=== PATIENT | female | born 1990 | race Caucasian/White ===

== ENCOUNTER 2019-03-19 20:15 | Emergency (ER) | payer BC, MEDICAID ==
[2019-03-19] MEDS ORDERED: MORPHINE SULFATE 2 MG/ML SYRINGE IVP STA (20:42)
[2019-03-19] MEDS ORDERED: ONDANSETRON 4 MG/2 ML VIAL IVP STA (20:42)
--- NOTE | 2019-03-19 20:46 | ED ---
General Adult HPI - General Chief complaint: Chest Pain Stated complaint: Chest pain Time Seen by Provider: 03/19/19 20:25 Source: patient Mode of arrival: wheelchair Limitations: no limitations - History of Present Illness Initial comments: 28-year-old female patient with past medical history significant for anxiety presents to the emergency department today for evaluation of chest pain. Patient states she has been having chest pain on and off all day. Patient states the pain is now constant and radiating down the left arm. Patient states the pain is sharp in nature and worsens with deep breathing. Patient states she feels a squeezing around her chest like is difficult to take a breath. States she did have some sweats earlier today. Denies any nausea or vomiting. Denies history of similar symptoms. Denies any recent increase in physical activity or injuries. Denies any recent cough or congestion. States she does take oral contraceptive for the last couple of years. She denies any leg pain or swelling. Denies any recent travel. She does have a family history of coronary artery disease in her father and grandparents. No history of cardiac events at young ages. Patient denies any recent rash, fever, chills, abdominal pain, d iarrhea, constipation, back pain, numbness, tingling, dizziness, weakness, hematuria, dysuria, urinary urgency, urinary frequency, headache, visual changes, or any other complaints. - Related Data Home Medications Medication Instructions Recorded Confirmed ALPRAZolam [Xanax] 0.25 mg PO Q8H PRN 03/19/19 03/19/19 Aspirin 81 mg PO ONCE PRN 03/19/19 03/19/19 Fluticasone Nasal [place] [Flonase 2 spray EA NOSTRIL HS 03/19/19 03/19/19 Nasal [place]] Gabapentin [Neurontin] 300 mg PO BID 03/19/19 03/19/19 Galcanezumab-Gnlm [Emgality] 120 mg SQ Q30D 03/19/19 03/19/19 Nortriptyline [Pamelor] 25 mg PO HS 03/19/19 03/19/19 Ondansetron HCl [Zofran] 4 mg PO Q8H PRN 03/19/19 03/19/19 Rivelsa 1 tab PO HS 03/19/19 03/19/19 Rizatriptan Odt [Maxalt Automation Engineering Manager] 10 mg PO BID PRN 03/19/19 03/19/19 busPIRone HCL 10 mg PO BID 03/19/19 03/19/19 Previous Rx's Medication Instructions Recorded Cephalexin [Keflex] 500 mg PO BID #14 cap 03/19/19 Cephalexin [Keflex] 500 mg PO BID #14 cap 03/19/19 Allergies Allergy/AdvReac Type Severity Reaction Status Date / Time metformin Allergy Dyspnea Verified 03/19/19 21:18 Review of Systems ROS Statement: Those systems with pertinent positive or pertinent negative responses have been documented in the HPI. ROS Other: All systems not noted in ROS Statement are negative. Past Medical History Additional Past Medical History / Comment(s): migraines, History of Any Multi-Drug Resistant Organisms: None Reported Past Surgical History: Cholecystectomy Past Psychological History: No Psychological Hx Reported Smoking Status: Former smoker Past Alcohol Use History: Occasional Past Drug Use History: None Reported General Exam Limitations: no limitations General appearance: alert, in no apparent distress, other (Physical well-dev eloped, well-nourished adult female patient in no acute distress. Vital signs upon presentation are temperature 98.1F, pulse 83, respirations 18, blood pressure 124/78, pulse ox 100% on room air.) Eye exam: Present: normal appearance, PERRL, EOMI. Absent: scleral icterus, conjunctival injection, periorbital swelling ENT exam: Present: normal exam, normal oropharynx, mucous membranes moist Respiratory exam: Present: normal lung sounds bilaterally. Absent: respiratory distress, wheezes, rales, rhonchi, stridor Cardiovascular Exam: Present: regular rate, normal rhythm, normal heart sounds. Absent: systolic murmur, diastolic murmur, rubs, gallop, clicks GI/Abdominal exam: Present: soft, normal bowel sounds. Absent: distended, tenderness, guarding, rebound, rigid Neurological exam: Present: alert, oriented X3, CN II-XII intact Psychiatric exam: Present: normal affect, normal mood Skin exam: Present: warm, dry, intact, normal color. Absent: rash Course Vital Signs 03/19/19 03/19/19 03/19/19 20:19 21:20 21:30 Temperature 98.1 F Pulse Rate 83 92 75 Respiratory 18 18 19 Rate Blood Pressure 124/78 123/63 123/63 O2 Sat by Pulse 100 100 100 Oximetry 03/19/19 03/19/19 03/19/19 21:40 21:50 22:00 Temperature Pulse Rate 72 96 Respiratory 7 L 9 L Rate Blood Pressure 124/65 124/65 124/65 O2 Sat by Pulse 99 100 Oximetry EKG Findings - EKG Comments: EKG Findings:: EKG obtained at 2030 shows normal sinus rhythm with a sinus arrhythmia. Ventricular rate is 82, MI interval 134, QRS duration 92, QT 364, QTC 425. No evidence of ST elevation or depression. Medical Decision Making - Medical Decision Making 28-year-old female patient presents to the emergency department today for evaluation of chest pain and tightness. Physical examination reveals clear equal lung sounds. Pain is nonreproducible palpation. EKG showed normal sinus rhythm with a sinus arrhythmia, no ST changes. Chest x-ray showed no acute cardiopulmonary process. Labs were reviewed and are mostly unremarkable. D- dimer was 0.50 which was borderline for this patient. Did perform CT angiogr aphy of the chest which was negative for any evidence for pulmonary embolism or other acute processes. I did discuss findings and results with the patient. We did discuss anxiety as a possible cause for her symptoms however she is instructed to follow-up with her primary care physician for further evaluation, discussion of referral to cardiology and possible echocardiogram. Return parameters were discussed in detail. She verbalizes understanding and agrees with this plan. - Lab Data Result diagrams: 03/19/19 20:38 03/19/19 20:38 Lab Results 03/19/19 03/19/19 03/19/19 Range/Units 20:38 20:38 20:38 WBC 5.2 (3.8-10.6) k/uL RBC 4.07 (3.80-5.40) m/uL Hgb 13.5 (11.4-16.0) gm/dL Hct 39.0 (34.0-46.0) % MCV 96.0 (80.0-100.0) fL MCH 33.2 (25.0-35.0) pg MCHC 34.6 (31.0-37.0) g/dL RDW 12.0 (11.5-15.5) % Plt Count 212 (150-450) k/uL Neutrophils % 43 % Lymphocytes % 46 % Monocytes % 6 % Eosinophils % 1 % Basophils % 1 % Neutrophils # 2.3 (1.3-7.7) k/uL Lymphocytes # 2.4 (1.0-4.8) k/uL Monocytes # 0.3 (0-1.0) k/uL Eosinophils # 0.1 (0-0.7) k/uL Basophils # 0.0 (0-0.2) k/uL PT 10.2 (9.0-12.0) sec INR 0.9 (<1.2) APTT 25.1 (22.0-30.0) sec D-Dimer 0.55 (<0.60) mg/L FEU Sodium 140 (137-145) mmol/L Potassium 4.0 (3.5-5.1) mmol/L Chloride 104 (98-107) mmol/L Carbon Dioxide 26 (22-30) mmol/L Anion Gap 10 mmol/L BUN 17 (7-17) mg/dL Creatinine 0.80 (0.52-1.04) mg/dL Est GFR (CKD-EPI)AfAm >90 (>60 ml/min/1.73 sqM) Est GFR (CKD-EPI)NonAf >90 (>60 ml/min/1.73 sqM) Glucose 89 (74-99) mg/dL Calcium 9.5 (8.4-10.2) mg/dL Magnesium 2.0 (1.6-2.3) mg/dL Total Bilirubin 0.3 (0.2-1.3) mg/dL AST 29 (14-36) U/L ALT 41 (9-52) U/L Alkaline Phosphatase 55 (38-126) U/L Troponin I (0.000-0.034) ng/mL Total Protein 7.8 (6.3-8.2) g/dL Albumin 4.6 (3.5-5.0) g/dL Lipase 164 (23-300) U/L Urine Color Urine Appearance (Clear) Urine pH (5.0-8.0) Ur Specific [place] (1.001-1.035) Urine Protein (Negative) Urine Glucose (UA) (Negative) Urine Ketones (Negative) Urine Blood (Negative) Urine Nitrite (Negative) Urine Bilirubin (Negative) Urine Urobilinogen (<2.0) mg/dL Ur Leukocyte Esterase (Negative) Urine RBC (0-5) /hpf Urine WBC (0-5) /hpf Urine WBC Clumps (None) /hpf Ur Squamous Epith Cells (0-4) /hpf Urine Bacteria (None) /hpf Urine Mucus (None) /hpf Urine Yeast (Budding) (None) /hpf Urine HCG, Qual (Not Detectd) 03/19/19 03/19/19 03/19/19 Range/Units 20:38 21:00 21:00 WBC (3.8-10.6) k/uL RBC (3.80-5.40) m/uL Hgb (11.4-16.0) gm/dL Hct (34.0-46.0) % MCV (80.0-100.0) fL MCH (25.0-35.0) pg MCHC (31.0-37.0) g/dL RDW (11.5-15.5) % Plt Count (150-450) k/uL Neutrophils % % Lymphocytes % % Monocytes % % Eosinophils % % Basophils % % Neutrophils # (1.3-7.7) k/uL Lymphocytes # (1.0-4.8) k/uL Monocytes # (0-1.0) k/uL Eosinophils # (0-0.7) k/uL Basophils # (0-0.2) k/uL PT (9.0-12.0) sec INR (<1.2) APTT (22.0-30.0) sec D-Dimer (<0.60) mg/L FEU Sodium (137-145) mmol/L Potassium (3.5-5.1) mmol/L Chloride (98-107) mmol/L Carbon Dioxide (22-30) mmol/L Anion Gap mmol/L BUN (7-17) mg/dL Creatinine (0.52-1.04) mg/dL Est GFR (CKD-EPI)AfAm (>60 ml/min/1.73 sqM) Est GFR (CKD-EPI)NonAf (>60 ml/min/1.73 sqM) Glucose (74-99) mg/dL Calcium (8.4-10.2) mg/dL Magnesium (1.6-2.3) mg/dL Total Bilirubin (0.2-1.3) mg/dL AST (14-36) U/L ALT (9-52) U/L Alkaline Phosphatase (38-126) U/L Troponin I <0.012 (0.000-0.034) ng/mL Total Protein (6.3-8.2) g/dL Albumin (3.5-5.0) g/dL Lipase (23-300) U/L Urine Color Yellow Urine Appearance Cloudy H (Clear) Urine pH 6.0 (5.0-8.0) Ur Specific [place] 1.020 (1.001-1.035) Urine Protein Trace H (Negative) Urine Glucose (UA) Negative (Negative) Urine Ketones Negative (Negative) Urine Blood Trace H (Negative) Urine Nitrite Negative (Negative) Urine Bilirubin Negative (Negative) Urine Urobilinogen <2.0 (<2.0) mg/dL Ur Leukocyte Esterase Large H (Negative) Urine RBC 20 H (0-5) /hpf Urine WBC 49 H (0-5) /hpf Urine WBC Clumps Few H (None) /hpf Ur Squamous Epith Cells 4 (0-4) /hpf Urine Bacteria Many H (None) /hpf Urine Mucus Many H (None) /hpf Urine Yeast (Budding) Occasional H (None) /hpf Urine HCG, Qual Not Detected (Not Detectd) - Radiology Data Radiology results: report reviewed, image reviewed Two-view x-ray of the chest is obtained. Report was reviewed in its entirety. Impression by Dr. Parada shows normal chest. CT chest angiography for pulmonary embolus and was obtained. Report was reviewed in its entirety. Impression by Dr. Parada shows no evidence of pulmonary embolism. Normal exam. Disposition Clinical Impression: Chest pain, Urinary tract infection Disposition: HOME SELF-CARE Condition: Good Instructions (If sedation given, give patient instructions): Chest Pain (ED), Urinary Tract Infection in Women (ED) Additional Instructions: Increase fluids. Rest. Complete antibiotic prescription in full. Follow up with your primary care physician for recheck in 1-2 days. Return to the emergency department for evaluation for any new, worsening, or concerning symptoms. Prescriptions: Cephalexin [Keflex] 500 mg PO BID #14 cap Cephalexin [Keflex] 500 mg PO BID #14 cap Is patient prescribed a controlled substance at d/c from ED?: No Referrals: Toni Dixon DO [Primary Care Provider] - 1-2 days Time of Disposition: 23:31
[2019-03-19 21:02] LABS: ALT 41 U/L (9-52); AST 29 U/L (14-36); African American GFR (CKD) >90 (>60 ml/min/1.73 sqM); Albumin 4.6 g/dL (3.5-5.0); Alkaline Phosphatase 55 U/L (38-126); Anion Gap 10 mmol/L; Blood Urea Nitrogen 17 mg/dL (7-17); Calcium 9.5 mg/dL (8.4-10.2); Carbon Dioxide 26 mmol/L (22-30); Chloride 104 mmol/L (98-107); Glucose 89 mg/dL (74-99); Sodium 140 mmol/L (137-145); Total Bilirubin 0.3 mg/dL (0.2-1.3); Total Protein 7.8 g/dL (6.3-8.2)
[2019-03-19 21:07] LABS: D-Dimer 0.55 mg/L FEU (<0.60); INR 0.9 (<1.2); Partial Thromboplastin Time 25.1 sec (22.0-30.0); Prothrombin Time 10.2 sec (9.0-12.0)
[2019-03-19 21:26] LABS: Basophils % (A) 1 %; Eosinophils # (A) 0.1 k/uL (0-0.7); Eosinophils % (A) 1 %; HGB 13.5 gm/dL (11.4-16.0); Lymphocytes # (A) 2.4 k/uL (1.0-4.8); Lymphocytes % (A) 46 %; MCH 33.2 pg (25.0-35.0); MCHC 34.6 g/dL (31.0-37.0); Monocytes # (A) 0.3 k/uL (0-1.0); Monocytes % (A) 6 %; Neutrophils # (A) 2.3 k/uL (1.3-7.7); Neutrophils % (A) 43 %; Platelet Count 212 k/uL (150-450); RBC 4.07 m/uL (3.80-5.40); WBC 5.2 k/uL (3.8-10.6)
[2019-03-19 21:30] LABS: Appearance,Urine Cloudy (Clear); Bacteria,Urine Many /hpf; Bilirubin,Urine Negative (Negative); Blood,Urine Trace (Negative); Budding Yeast,Urine Occasional /hpf; Color,Urine Yellow; Glucose,Urine (UA) Negative (Negative); Ketones,Urine Negative (Negative); Leukocyte Esterase,Urine Large (Negative); Mucus,Urine Many /hpf; Nitrite,Urine Negative (Negative); Protein,Urine Trace (Negative); RBC,Urine 20 /hpf (0-5); Squamous Epithelial Cell,Urine 4 /hpf (0-4); Urobilinogen,Urine <2.0 mg/dL (<2.0); WBC,Urine 49 /hpf (0-5)
--- NOTE | 2019-03-19 21:47 | XR ---
EXAMINATION TYPE: XR chest 2V DATE OF EXAM: 03/19/2019 COMPARISON: NONE HISTORY: Chest TECHNIQUE: Frontal and lateral views of the chest are obtained. FINDINGS: Heart and mediastinum are normal. Lungs are clear. Diaphragm is normal. Bony thorax appear s normal. IMPRESSION: Normal chest.
[2019-03-19] MEDS ORDERED: CEPHALEXIN 500MG STARTER PACK 4 CAP BTL PO STA (21:50)
--- NOTE | 2019-03-19 23:12 | CT ---
EXAMINATION TYPE: CT chest angio for PE DATE OF EXAM: 03/19/2019 COMPARISON: None HISTORY: chest pain CT DLP: 309.9 mGycm Automated exposure control for dose reduction was used. CONTRAST: CT Chest for pulmonary embolism performed with with IV Contrast, patient injected with 60 mL of Isovu e 370. There are 3-D post processed images. FINDINGS: The lungs are clear of infiltrate. There is no pleural effusion. Heart size is normal. There is no me diastinal adenopathy. Thoracic aorta is intact. There are are no hilar masses. There is normal contrast opacification of the pulmonary arteries. There are no filling defects. Thora cic spine is intact. Bony thorax appears intact. There is no pericardial effusion. Upper abdominal so ft tissues are intact. IMPRESSION: No evidence of pulmonary embolism. Normal exam.
[2019-03-19] MEDS ORDERED: LORazepam 2 MG/ML INJ IV STA (23:29)
[2019-03-19] MEDS ORDERED: KETOROLAC 30 MG/ML 1 ML VIAL IVP STA (23:29)
[2019-03-20 00:31] VITALS: BP 128/70; PULSE 98; RESP 18; TEMP 98.6
== END 2019-03-20 00:20 | disposition home or self-care (01) ==
LOC: EC 20:15
DX: N39.0 Urinary tract infection, site not specified (principal); R07.9 Chest pain, unspecified; I49.8 Other specified cardiac arrhythmias; F41.9 Anxiety disorder, unspecified; G43.909 Migraine, unspecified, not intractable, without status migrainosus; Z79.899 Other long term (current) drug therapy; Z88.8 Allergy status to other drugs, medicaments and biological substances; Z87.891 Personal history of nicotine dependence
CPT/HCPCS: 36415; 93005; 85379; 80053; 83690; 83735; 84484; 85025; 85610; 85730; 81001; 81025; 71046; 71275; 99285; 96374; 96375 ×3; J2060; J2405; J1885; J2270; Q9967

== ENCOUNTER 2020-04-13 11:02 | Emergency (ER) | payer MEDICAID ==
[2020-04-13 11:34] VITALS: RESP 18
[2020-04-13] MEDS ORDERED: ONDANSETRON 4 MG/2 ML VIAL IVP STA (11:58)
[2020-04-13] MEDS ORDERED: HYDROmorphone 0.5 MG/0.5 ML SYRINGE IVP STA ×2 (11:58→13:33)
--- NOTE | 2020-04-13 12:28 | ED ---
ENT HPI - General Chief complaint: Dental/Oral Stated complaint: mouth swelling/pain Time Seen by Provider: 04/13/20 11:37 Source: patient, RN notes reviewed Mode of arrival: ambulatory Limitations: no limitations - History of Present Illness Initial comments: 29-year-old female presents emergency Department chief complaint of right-sided facial swelling. Patient states that she started having some discomfort in last day or so with her TMJ. Patient states she did receive a shot of steroids. Patient states that she went to urgent care today and was referred emergency department. She has no dentition and has bothering her. She states she did use some benzocaine on the right side of her face which she has used in the past but never had this reaction. No difficulty swallowing or difficult breathing. She states the pain is excruciating at this point. - Related Data Home Medications Medication Instructions Recorded Confirmed ALPRAZolam [Xanax] 0.25 mg PO Q8H PRN 03/19/19 03/19/19 Aspirin 81 mg PO ONCE PRN 03/19/19 03/19/19 Fluticasone Nasal [place] [Flonase 2 spray EA NOSTRIL HS 03/19/19 03/19/19 Nasal [place]] Gabapentin [Neurontin] 300 mg PO BID 03/19/19 03/19/19 Galcanezumab-Gnlm [Emgality] 120 mg SQ Q30D 03/19/19 03/19/19 Nortriptyline [Pamelor] 25 mg PO HS 03/19/19 03/19/19 Ondansetron HCl [Zofran] 4 mg PO Q8H PRN 03/19/19 03/19/19 Rivelsa 1 tab PO HS 03/19/19 03/19/19 Rizatriptan Odt [Maxalt Base Engineer] 10 mg PO BID PRN 03/19/19 03/19/19 busPIRone HCL 10 mg PO BID 03/19/19 03/19/19 Previous Rx's Medication Instructions Recorded Cephalexin [Keflex] 500 mg PO BID #14 cap 03/19/19 Cephalexin [Keflex] 500 mg PO BID #14 cap 03/19/19 Amoxicillin/Potassium Clav 1 tab PO Q12HR #20 tab 04/13/20 [Augmentin 875-125 Tablet] Allergies Allergy/AdvReac Type Severity Reaction Status Date / Time metformin Allergy Dyspnea Verified 04/13/20 11:34 Review of Systems ROS Statement: Those systems with pertinent positive or pertinent negative responses have been documented in the HPI. ROS Other: All systems not noted in ROS Statement are negative. Past Medical History Additional Past Medical History / Comment(s): migraines, History of Any Multi-Drug Resistant Organisms: None Reported Past Surgical History: Cholecystectomy Past Psychological History: No Psychological Hx Reported Smoking Status: Never smoker Past Alcohol Use History: Occasional Past Drug Use History: None Reported General Exam Limitations: no limitations General appearance: alert, in no apparent distress Head exam: Present: atraumatic, normocephalic, normal inspection Eye exam: Present: normal appearance, PERRL, EOMI. Absent: scleral icterus, conjunctival injection, periorbital swelling ENT exam: Present: mucous membranes moist, TM's normal bilaterally. Absent: normal exam, normal oropharynx (Significant swollen right lower, tenderness increased warmth and erythema) Neck exam: Present: normal inspection, full ROM. Absent: tenderness, meningismus, lymphadenopathy Respiratory exam: Present: normal lung sounds bilaterally. Absent: respiratory distress, wheezes, rales, rhonchi, stridor Cardiovascular Exam: Present: regular rate, normal rhythm, normal heart sounds. Absent: systolic murmur, diastolic murmur, rubs, gallop, clicks Course Vital Signs 04/13/20 04/13/20 11:32 13:41 Temperature 98.4 F Pulse Rate 103 H 80 Respiratory 18 18 Rate Blood Pressure 116/67 127/69 O2 Sat by Pulse 98 98 Oximetry Medical Decision Making - Medical Decision Making 29-year-old female presented for right-sided facial swelling CT shows evidence of early phlegmon. Patient has no other significant leukocytosis which she had significant increase in his abdomen last [address] Lloyd discuss case with Dr. Barger recommends patient's take her him is a minor amount, placed on Augmentin, follow-up in office with ENT and dentist - Lab Data Result diagrams: 04/13/20 12:17 04/13/20 12:17 Lab Results 04/13/20 04/13/20 04/13/20 Range/Units 12:17 12:17 12:17 WBC 8.4 (3.8-10.6) k/uL RBC 4.32 (3.80-5.40) m/uL Hgb 13.9 (11.4-16.0) gm/dL Hct 41.9 (34.0-46.0) % MCV 97.1 (80.0-100.0) fL MCH 32.2 (25.0-35.0) pg MCHC 33.2 (31.0-37.0) g/dL RDW 12.7 (11.5-15.5) % Plt Count 198 (150-450) k/uL MPV 6.6 Neutrophils % 82 % Lymphocytes % 12 % Monocytes % 5 % Eosinophils % 1 % Basophils % 0 % Neutrophils # 6.9 (1.3-7.7) k/uL Lymphocytes # 1.0 (1.0-4.8) k/uL Monocytes # 0.4 (0-1.0) k/uL Eosinophils # 0.0 (0-0.7) k/uL Basophils # 0.0 (0-0.2) k/uL Sodium 140 (137-145) mmol/L Potassium 4.2 (3.5-5.1) mmol/L Chloride 107 (98-107) mmol/L Carbon Dioxide 25 (22-30) mmol/L Anion Gap 8 mmol/L BUN 13 (7-17) mg/dL Creatinine 0.73 (0.52-1.04) mg/dL Est GFR (CKD-EPI)AfAm >90 (>60 ml/min/1.73 sqM) Est GFR (CKD-EPI)NonAf >90 (>60 ml/min/1.73 sqM) Glucose 91 (74-99) mg/dL Plasma Lactic Acid Freddie 0.8 (0.7-2.0) mmol/L Calcium 9.4 (8.4-10.2) mg/dL Total Bilirubin 1.3 (0.2-1.3) mg/dL AST 24 (14-36) U/L ALT 25 (4-34) U/L Alkaline Phosphatase 64 (38-126) U/L Total Protein 7.6 (6.3-8.2) g/dL Albumin 4.4 (3.5-5.0) g/dL Amylase 42 (30-110) U/L Disposition Clinical Impression: Facial cellulitis, Dental infection Disposition: HOME SELF-CARE Condition: Stable Instructions (If sedation given, give patient instructions): Cellulitis (ED) Additional Instructions: Please return to the Emergency Department if symptoms worsen or any other concerns. Prescriptions: Amoxicillin/Potassium Clav [Augmentin 875-125 Tablet] 1 tab PO Q12HR #20 tab Is patient prescribed a controlled substance at d/c from ED?: No Referrals: Toni Dixon DO [Primary Care Provider] - 1-2 days Reji Barger DO [Doctor of Osteopathic Medicine] - 1-2 days Time of Disposition: 14:24
[2020-04-13 12:49] LABS: Basophils % (A) 0 %; Eosinophils % (A) 1 %; HCT 41.9 % (34.0-46.0); HGB 13.9 gm/dL (11.4-16.0); Lymphocytes % (A) 12 %; MCH 32.2 pg (25.0-35.0); MCHC 33.2 g/dL (31.0-37.0); MCV 97.1 fL (80.0-100.0); Mean Platelet Volume 6.6; Monocytes # (A) 0.4 k/uL (0-1.0); Monocytes % (A) 5 %; Neutrophils # (A) 6.9 k/uL (1.3-7.7); Neutrophils % (A) 82 %; Platelet Count 198 k/uL (150-450); RBC 4.32 m/uL (3.80-5.40); RDW 12.7 % (11.5-15.5); WBC 8.4 k/uL (3.8-10.6)
[2020-04-13 12:58] LABS: ALT 25 U/L (4-34); AST 24 U/L (14-36); African American GFR (CKD) >90 (>60 ml/min/1.73 sqM); Albumin 4.4 g/dL (3.5-5.0); Alkaline Phosphatase 64 U/L (38-126); Amylase 42 U/L (30-110); Anion Gap 8 mmol/L; Blood Urea Nitrogen 13 mg/dL (7-17); Calcium 9.4 mg/dL (8.4-10.2); Carbon Dioxide 25 mmol/L (22-30); Chloride 107 mmol/L (98-107); Glucose 91 mg/dL (74-99); Non-African American GFR(CKD) >90 (>60 ml/min/1.73 sqM); Potassium 4.2 mmol/L (3.5-5.1); Sodium 140 mmol/L (137-145); Total Bilirubin 1.3 mg/dL (0.2-1.3); Total Protein 7.6 g/dL (6.3-8.2)
--- NOTE | 2020-04-13 13:15 | CT ---
EXAMINATION TYPE: CT soft tissue neck w con DATE OF EXAM: 04/13/2020 COMPARISON: None HISTORY: Mouth swelling, pain CT DLP: 168.8 mGycm CONTRAST: Patient injected with 100 ml mL of Isovue 300. TECHNIQUE: Axial images at 3 mm thick sections. Reconstructed images in the coronal plane and sagitt al plane are reviewed. FINDINGS: Limited CT sections are obtained the lung apices. The lung apices appear clear. CT neck: The torus tubarius and fossa of [place]muller are normal. Manufacturing Mechanic spaces are normal. Para nasal sinuses and mastoid air cells are clear. Parotid glands appear normal and symmetrical. Submandibular glands, are normal. Parapharyngeal spac es are normal. No suspicious adenopathy is evident. Subcutaneous inflammatory changes or from the submental space on the right through the right mandibul ar level towards the cheek. This corresponds to the area marked by the BBs. The platysmas muscle may be slightly thickened and there is a small amount of fluid adjacent to the parotid gland and right tubbs bmandibular gland. No discrete abscess formation is evident. There are a couple of hyperdense lymph n odes in this region measuring 0.7 cm in transverse dimension. The hypopharynx appears within normal limits. Vocal cord level appear symmetrical. Thyroid as visualized is normal. Osseous structures are normal. Upper lung hunter are clear. There is a three-vessel arch. Subglottic airway is normal. IMPRESSIONS: 1. Soft tissue inflammatory changes with some deeper inflammatory changes and small amount of fluid n ear the angle of the jaw. Infection and phlegmon should be considered. No discrete abscess formation is evident at this time.
[2020-04-13] MEDS ORDERED: CLINDAMYCIN 600 MG in DEXTROSE 5% IN WATER 50 ML IVPB STA ×2 (13:32)
[2020-04-13] MEDS ORDERED: KETOROLAC 15 MG/ML 1 ML VIAL IVP STA (13:33)
[2020-04-13] MEDS ORDERED: ACET/COD 300 MG/30 MG STARTER PACK 6 TAB BTL PO STA (14:25)
[2020-04-13 15:05] VITALS: BP 111/61; PULSE 93; TEMP 98
== END 2020-04-13 15:02 | disposition home or self-care (01) ==
LOC: EC 11:02
DX: L03.211 Cellulitis of face (principal); K04.7 Periapical abscess without sinus; G43.909 Migraine, unspecified, not intractable, without status migrainosus; Z79.51 Long term (current) use of inhaled steroids; Z79.3 Long term (current) use of hormonal contraceptives; Z88.8 Allergy status to other drugs, medicaments and biological substances
CPT/HCPCS: 36415; 80053; 82150; 83605; 85025; 70491; 99284; 96365; 96375 ×3; 96376; J2405; J1885; J1170; Q9967

== ENCOUNTER → 2020-12-10 | Outpatient (CLI) | payer MEDICAID | LOC: EC 22:39 | PROVIDERS: ATTEND Internal Medicine Rheumatology | DX: Z53.9 Procedure and treatment not carried out, unspecified reason (principal) ==

== ENCOUNTER → 2021-01-12 | Outpatient (CLI) | payer MEDICAID ==
--- NOTE | 2021-01-12 14:22 | XR ---
EXAM TYPE: LUMBAR SPINE X RAY SERIES COMPARISON: NONE HISTORY: Pain TECHNIQUE: 4 views are submitted. FINDINGS: Alignment is anatomic. The pedicles are intact. The transverse processes are intact. There is no s pondylolysis or spondylolisthesis. Surgical clips in the gallbladder fossa. No sizable syndesmophyte s or osteophytes noted. Mild hypertrophic change of the facet L5-S1. IMPRESSION: 1. Mild facet arthropathy L5-S1..
--- NOTE | 2021-01-12 14:22 | XR ---
EXAMINATION TYPE: XR pelvis AP view DATE OF EXAM: 01/12/2021 COMPARISON: NONE HISTORY: Pain The osseous structures are intact and the joint spaces are preserved. No acute fracture is seen. Vi sualized bowel gas pattern is nonspecific. Sacroiliac joints normal. IMPRESSION: 1. No acute fracture.
--- NOTE | 2021-01-12 14:23 | XR ---
EXAMINATION TYPE: XR cervical spine comp DATE OF EXAM: 01/12/2021 COMPARISON: NONE HISTORY: Pain TECHNIQUE: Four views are submitted. FINDINGS: The odontoid is intact. There are no compression deformities. The prevertebral soft tissue structur es are within normal limits. Posterior spondylosis noted at C5-6 and C6-C7. Disc spaces are preserve d. Vertebral body height preserved. IMPRESSION: 1. Very mild posterior spondylosis C5-6 and C6-C7.
== END | disposition home or self-care (01) ==
LOC: RADXRMAIN 13:38
PROVIDERS: ATTEND Internal Medicine Rheumatology
DX: M47.817 Spondylosis without myelopathy or radiculopathy, lumbosacral region (principal); M47.812 Spondylosis without myelopathy or radiculopathy, cervical region
CPT/HCPCS: 72050; 72110; 72170

== ENCOUNTER → 2021-01-16 | Outpatient (CLI) | payer MEDICAID, OTHER | END | disposition home or self-care (01) | LOC: LABWHC1 19:09 | PROVIDERS: ATTEND Emergency Medicine | DX: Z20.822 Contact with and (suspected) exposure to COVID-19 (principal) | CPT/HCPCS: 87635 ==

== ENCOUNTER → 2021-01-18 | Outpatient (CLI) | payer MEDICAID, OTHER | END | disposition home or self-care (01) | LOC: LABWHC1 08:17 | PROVIDERS: ATTEND Emergency Medicine | DX: Z20.822 Contact with and (suspected) exposure to COVID-19 (principal) | CPT/HCPCS: 87635 ==

== ENCOUNTER → 2021-02-15 | Outpatient (CLI) | payer MEDICAID, OTHER | END | disposition home or self-care (01) | LOC: LABWHC1 11:02 | PROVIDERS: ATTEND Emergency Medicine | DX: Z20.822 Contact with and (suspected) exposure to COVID-19 (principal) | CPT/HCPCS: 87635 ==

== ENCOUNTER → 2021-02-16 | Outpatient (CLI) | payer MEDICAID, OTHER | END | disposition home or self-care (01) | LOC: LABWHC1 11:48 | PROVIDERS: ATTEND Emergency Medicine | DX: Z20.822 Contact with and (suspected) exposure to COVID-19 (principal) | CPT/HCPCS: 87635 ==

== ENCOUNTER → 2021-04-30 | Outpatient (CLI) | payer MEDICAID, OTHER | END | disposition home or self-care (01) | LOC: LABWHC1 14:01 | PROVIDERS: ATTEND Emergency Medicine | DX: U07.1 COVID-19 (principal) | CPT/HCPCS: 87635 ==

== ENCOUNTER 2021-12-03 23:56 | Emergency (ER) | payer MEDICAID, OTHER ==
[2021-12-04 00:02] VITALS: TEMP 98.3
[2021-12-04] MEDS ORDERED: ONDANSETRON 4 MG/2 ML VIAL IVP STA (00:25)
[2021-12-04] MEDS ORDERED: diphenhydrAMINE 50 MG/ML 1 ML VIAL IVP STA (00:25)
[2021-12-04] MEDS ORDERED: SODIUM CHLORIDE 0.9% 1,000 ML IV STA (00:25)
[2021-12-04] MEDS ORDERED: KETOROLAC 15 MG/ML 1 ML VIAL IVP STA ×2 (00:25→01:35)
--- NOTE | 2021-12-04 00:28 | ED ---
General Adult HPI - General Chief complaint: Headache Stated complaint: Headache Time Seen by Provider: 12/04/21 00:12 Source: patient, RN notes reviewed Mode of arrival: ambulatory Limitations: no limitations - History of Present Illness Initial comments: 31-year-old female presents to the emergency department for evaluation of migraine headache, onset today. Patient states she has a history of migraine headaches and has been taking her medications as prescribed. Reports she has had worsening headaches over the past few months with tonight being the worst. Patient states her headache is accompanied by sensitivity to light, sound, and movement. Patient endorses vomiting. States she took Maxalt and gabapentin prior to arrival. No known trigger. Denies fever, chills, chest pain, shortness of breath, abdominal pain, diarrhea, dysuria, or hematuria. - Related Data Home Medications Medication Instructions Recorded Confirmed ALPRAZolam [Xanax] 0.25 mg PO Q8H PRN 03/19/19 03/19/19 Aspirin 81 mg PO ONCE PRN 03/19/19 03/19/19 Fluticasone Nasal [place] [Flonase 2 spray EA NOSTRIL HS 03/19/19 03/19/19 Nasal [place]] Gabapentin [Neurontin] 300 mg PO BID 03/19/19 03/19/19 Galcanezumab-Gnlm [Emgality] 120 mg SQ Q30D 03/19/19 03/19/19 Nortriptyline [Pamelor] 25 mg PO HS 03/19/19 03/19/19 Rivelsa 1 tab PO HS 03/19/19 03/19/19 Rizatriptan Odt [Maxalt Internetworking Technician] 10 mg PO BID PRN 03/19/19 03/19/19 busPIRone HCL 10 mg PO BID 03/19/19 03/19/19 ondansetron HCL [Zofran] 4 mg PO Q8H PRN 03/19/19 03/19/19 Previous Rx's Medication Instructions Recorded Cephalexin [Keflex] 500 mg PO BID #14 cap 03/19/19 cephALEXin [Keflex] 500 mg PO BID #14 cap 03/19/19 Amoxicillin/Potassium Clav 1 tab PO Q12HR #20 tab 04/13/20 [Augmentin 875-125 Tablet] Allergies Allergy/AdvReac Type Severity Reaction Status Date / Time metformin Allergy Dyspnea Verified 04/13/20 11:34 Review of Systems ROS Statement: Those systems with pertinent positive or pertinent negative responses have been documented in the HPI. ROS Other: All systems not noted in ROS Statement are negative. Past Medical History Additional Past Medical History / Comment(s): migraines, History of Any Multi-Drug Resistant Organisms: None Reported Past Surgical History: Cholecystectomy Past Psychological History: No Psychological Hx Reported Smoking Status: Never smoker Past Alcohol Use History: Occasional Past Drug Use History: None Reported General Exam Limitations: no limitations General appearance: alert, in distress (Well-developed, well-nourished female in mild distress due to pain. Initial temperature 98.3, pulse 70, respirations 18, blood pressure 126/78, pulse ox 100% on room air.) Head exam: Present: atraumatic, normocephalic, normal inspection Eye exam: Present: normal appearance, PERRL, EOMI. Absent: scleral icterus, conjunctival injection, nystagmus, periorbital swelling ENT exam: Present: normal exam, normal oropharynx, mucous membranes moist Neck exam: Present: normal inspection, full ROM. Absent: tenderness, meni ngismus, lymphadenopathy Respiratory exam: Present: normal lung sounds bilaterally. Absent: respiratory distress, wheezes, rales, rhonchi, stridor Cardiovascular Exam: Present: regular rate, normal rhythm, normal heart sounds. Absent: systolic murmur, diastolic murmur, rubs, gallop, clicks GI/Abdominal exam: Present: soft, normal bowel sounds, other (Actively vomiting). Absent: distended, tenderness, guarding, rebound, rigid Back exam: Absent: CVA tenderness (R), CVA tenderness (L) Neurological exam: Present: alert, oriented X3, CN II-XII intact Expanded Patient oriented to: Present: person, place, time Speech: Present: fluid speech Cranial nerves: EOM's Intact: Normal, Nystagmus: Normal Cerebellar function: Finger to Nose: Normal Motor strength exam: RUE: 5, LUE: 5, RLE: 5, LLE: 5 Eye Response: (4) open spontaneously Motor Response: (6) obeys commands Verbal Response: (5) oriented [place] Total: 15 Psychiatric exam: Present: flat affect Skin exam: Present: warm, intact, normal color, diaphoretic Course Vital Signs 12/03/21 12/04/21 23:56 02:35 Temperature 98.3 F Pulse Rate 70 78 Respiratory 18 16 Rate Blood Pressure 126/78 111/68 O2 Sat by Pulse 100 98 Oximetry - Reevaluation(s) Reevaluation #1: 12/04/21 01:30 Upon reassessment, patient appears markedly improved. Mild headache remains therefore will be given a repeat dose of Toradol then discharged home to follow- up with her PCP for recheck. Patient is agreeable with this plan of care. Medical Decision Making - Medical Decision Making 31-year-old female with a past medical history migraine headaches presents to the emergency Department with complaints of migraine, onset this evening. Patient describes this as the worst headache she has experienced. States she has never had to come to the emergency department for treatment of her migraines before. Upon exam, patient is diaphoretic and vomiting. She complains of photophobia and mild dizziness. She is neurologically intact with no focal deficits. She is given IV fluids, Benadryl, Toradol, and Zofran with improvement. CT of the brain was obtained and was negative. Repeat dose of Toradol was given with near resolution of headache discomfort. Patient is instructed to follow up with her PCP for a recheck this week. Return parameters were discussed in detail. Patient verbalizes understanding and agrees with this plan. Attending:Saranya. - Radiology Data Radiology results: report reviewed, image reviewed CT of the brain was obtained. Report was reviewed in its entirety. Impression per Dr. Parada is negative unenhanced head computed tomography scan. Disposition Clinical Impression: Migraine headache Disposition: HOME SELF-CARE Condition: Stable Instructions (If sedation given, give patient instructions): Migraine Headache (ED) Additional Instructions: Continue taking your home medications as prescribed. Follow-up with your PCP for a recheck as needed. Do not hesitate to return to the emergency department with any new, worsening, or concerning symptoms. Is patient prescribed a controlled substance at d/c from ED?: No Referrals: Toni Dixon DO [Primary Care Provider] - 1-2 days Time of Disposition: 02:21
--- NOTE | 2021-12-04 01:39 | CT ---
EXAMINATION TYPE: CT brain wo con DATE OF EXAM: 12/04/2021 COMPARISON: None HISTORY: migraine x 4-[address] DLP: 1086.3 mGycm Automated exposure control for dose reduction was used. Ventricles and sulci appear normal. There is no mass effect or midline shift. No sign of intracranial hemorrhage. Calvarium is intact. There is normal aeration of the mastoid sinuses. IMPRESSION: Negative unenhanced head CT scan.
[2021-12-04 02:36] VITALS: BP 111/68; PULSE 78; RESP 16
== END 2021-12-04 02:35 | disposition home or self-care (01) ==
LOC: EC 23:56
DX: G43.909 Migraine, unspecified, not intractable, without status migrainosus (principal); Z88.8 Allergy status to other drugs, medicaments and biological substances; Z79.82 Long term (current) use of aspirin; Z79.899 Other long term (current) drug therapy
CPT/HCPCS: 70450; 96361; 96374; 96375; 96376; 99283; 99284

== ENCOUNTER → 2022-08-07 | Outpatient (CLI) | payer MEDICAID ==
--- NOTE | 2022-08-07 13:34 | XR ---
EXAMINATION TYPE: XR cervical spine comp DATE OF EXAM: 08/07/2022 COMPARISON: 01/12/2021 HISTORY: numbness and tingling TECHNIQUE: Four views are submitted. FINDINGS: The odontoid is intact. There are no compression deformities. The prevertebral soft tissue structur es are within normal limits. Small spur seen posteriorly C5-C6. IMPRESSION: 1. Small posterior spondylotic spurs C5-C6. Mild facet arthropathy. If clinically warranted consider MRI..
[2022-08-07 19:41] LABS: Basophils # (A) 0.03 X 10*3/uL (0.00-0.10); Basophils % (A) 0.5 %; Eosinophils # (A) 0.05 X 10*3/uL (0.04-0.35); Eosinophils % (A) 0.9 %; HCT 41.4 % (37.2-46.3); HGB 13.5 g/dL (12.0-15.0); Immature Grans, Automated 0.2 %; Lymphocytes # (A) 2.01 X 10*3/uL (0.90-5.00); Lymphocytes % (A) 35.3 %; MCH 31.8 pg (27.0-32.0); MCHC 32.6 g/dL (32.0-37.0); MCV 97.6 fL (80.0-97.0); Monocytes # (A) 0.32 X 10*3/uL (0.20-1.00); Monocytes % (A) 5.6 %; NRBC Per 100 WBC 0 /100 WBCS (0.0-0.0); Neutrophils # (A) 3.27 X 10*3/uL (1.80-7.70); Neutrophils % (A) 57.5 %; Platelet Count 237 X 10*3/uL (140-440); RBC 4.24 X 10*6/uL (4.10-5.20); RDW 12.6 % (11.5-14.5); WBC 5.69 X 10*3/uL (4.50-10.00)
[2022-08-07 19:55] LABS: ALT 27 U/L (8-44); AST 24 U/L (13-35); African American GFR (CKD) 98.3 (60.0-200.0); Albumin 4.3 g/dL (3.8-4.9); Alkaline Phosphatase 45 U/L (41-126); BUN/Creat Ratio 12.92 Ratio (12.00-20.00); Blood Urea Nitrogen 11.6 mg/dL (9.0-27.0); Calcium 9.6 mg/dL (8.7-10.3); Chloride 102 mmol/L (96-109); Follicle Stimulating Hormone 0.3 mIU/mL; Globulin 2.9 g/dL (1.6-3.3); Glucose 81 mg/dL (70-110); Non-African American GFR(CKD) 84.8 (60.0-200.0); Potassium 4.1 mmol/L (3.5-5.5); Sodium 140 mmol/L (135-145); Testosterone 3.28 ng/mL (9.01-47.94); Total Protein 7.1 g/dL (6.2-8.2)
[2022-08-07 20:11] LABS: Luteinizing Hormone <0.3 mIU/mL
[2022-08-07 23:09] LABS: Thyroid Peroxidase Antibodies 9.3 U/mL (0.0-33.0)
[2022-08-07 23:16] LABS: Progesterone <0.05 ng/mL
== END | disposition home or self-care (01) ==
LOC: LABWHC1 12:29
PROVIDERS: ATTEND Nurse Practitioner Family
DX: M47.812 Spondylosis without myelopathy or radiculopathy, cervical region (principal); F41.1 Generalized anxiety disorder; Z79.899 Other long term (current) drug therapy; N94.3 Premenstrual tension syndrome
CPT/HCPCS: 36415; 72050; 80053; 82672; 83001; 83002; 84144; 84146; 84403; 84443; 84481; 85025; 86376; 86800

== ENCOUNTER 2024-03-29 20:15 | Emergency (ER) | payer MEDICAID ==
[2024-03-29 20:19] VITALS: TEMP 97.3
--- NOTE | 2024-03-29 20:35 | ED ---
Headache HPI - General Chief Complaint: Headache Stated Complaint: migraine Time Seen by Provider: 03/29/24 20:35 Source: patient, RN notes reviewed, old records reviewed Mode of arrival: ambulatory Limitations: no limitations - History of Present Illness Initial Comments: 33-year-old female presented to the ER with a chief complaint of a migraine. Patient states she has an extensive history of migraines. She states earlier today she started to experience her typical migraine pain. She does report nausea and vomiting. Denies any double blurry vision. Admits to photophobia. She took Qulipta and Maxalt without relief which brought her to the ER for evaluation. She denies any dizziness, lightheadedness, weakness, chest pain, shortness of breath, abdominal pain or other complaints. - Related Data Home Medications Medication Instructions Recorded Confirmed ALPRAZolam [Xanax] 0.25 mg PO Q8H PRN 03/19/19 03/19/19 Aspirin 81 mg PO ONCE PRN 03/19/19 03/19/19 Fluticasone Nasal [place] [Flonase 2 spray EA NOSTRIL HS 03/19/19 03/19/19 Nasal [place]] Gabapentin [Neurontin] 300 mg PO BID 03/19/19 03/19/19 Galcanezumab-Gnlm [Emgality] 120 mg SQ Q30D 03/19/19 03/19/19 Nortriptyline [Pamelor] 25 mg PO HS 03/19/19 03/19/19 Rivelsa 1 tab PO HS 03/19/19 03/19/19 Rizatriptan Odt [Maxalt Labor Expediter] 10 mg PO BID PRN 03/19/19 03/19/19 busPIRone HCL 10 mg PO BID 03/19/19 03/19/19 ondansetron HCL [Zofran] 4 mg PO Q8H PRN 03/19/19 03/19/19 Previous Rx's Medication Instructions Recorded Cephalexin [Keflex] 500 mg PO BID #14 cap 03/19/19 cephALEXin [Keflex] 500 mg PO BID #14 cap 03/19/19 Amoxicillin/Potassium Clav 1 tab PO Q12HR #20 tab 04/13/20 [Augmentin 875-125 Tablet] Allergies Allergy/AdvReac Type Severity Reaction Status Date / Time metformin Allergy Dyspnea Verified 03/29/24 20:17 Review of Systems ROS Statement: Those systems with pertinent positive or pertinent negative responses have been documented in the HPI. ROS Other: All systems not noted in ROS Statement are negative. Past Medical History Past Medical History: Fibromyalgia Additional Past Medical History / Comment(s): migraines, History of Any Multi-Drug Resistant Organisms: None Reported Past Surgical History: Cholecystectomy Past Psychological History: No Psychological Hx Reported Smoking Status: Never smoker Past Alcohol Use History: Occasional Past Drug Use History: None Reported General Exam Limitations: no limitations General appearance: alert, in no apparent distress Head exam: Present: atraumatic, normocephalic, normal inspection Eye exam: Present: normal appearance, PERRL, EOMI. Absent: scleral icterus, conjunctival injection, periorbital swelling Pupils: Present: normal accommodation Neck exam: Present: normal inspection. Absent: tenderness, meningismus, lymphadenopathy Respiratory exam: Present: normal lung sounds bilaterally. Absent: respiratory distress, wheezes, rales, rhonchi, stridor Cardiovascular Exam: Present: regular rate, normal rhythm, normal heart sounds. Absent: systolic murmur, diastolic murmur, rubs, gallop, clicks Neurological exam: Present: alert, oriented X3, CN II-XII intact Skin exam: Present: warm, dry, intact, normal color. Absent: rash Course Vital Signs 03/29/24 20:17 Temperature 97.3 F L Pulse Rate 69 Respiratory 16 Rate Blood Pressure 130/84 O2 Sat by Pulse 99 Oximetry Medical Decision Making - Medical Decision Making Was pt. sent in by a medical professional or institution (, PA, HOSPICE MANAGER, urgent care, hospital, or shelter...) When possible be specific @ -No Did you speak to anyone other than the patient for history (EMS, parent, family, police, friend...)? What history was obtained from this source @ -No Did you review nursing and triage notes (agree or disagree)? Why? @ -I reviewed and agree with nursing and triage notes Were old charts reviewed (outside hosp., previous admission, EMS record, old EKG, old radiological studies, urgent care reports/EKG's, shelter records)? Report findings @ -No old charts were reviewed Differential Diagnosis (chest pain, altered mental status, abdominal pain women, abdominal pain men, vaginal bleeding, weakness, fever, dyspnea, syncope, headache, dizziness, GI bleed, back pain, seizure, CVA, palpatations, mental health, musculoskeletal)? @ -Differential Headache:Migraine, tension, cluster, carbon monoxide, central venous thrombosis, pension karma temporal arteritis, acute closure glaucoma, intercranial hemorrhage, mastoiditis, sinusitis, head injury, this is not meant to be an all-inclusive list. EKG interpreted by me (3pts min.). @ -None done X-rays interpreted by me (1pt min.). @ -None done CT interpreted by me (1pt min.). @ -None done U/S interpreted by me (1pt. min.). @ -None done What testing was considered but not performed or refused? (CT, X-rays, U/S, labs)? Why? @ -CT brain considered but not performed. Patient has an extensive history of migraines states pain feels typical to migraine pain. What meds were considered but not given or refused? Why? @ -None Did you discuss the management of the patient with other professionals (professionals i.e. , PA, HOSPICE MANAGER, lab, RT, psych nurse, social media editor, brick siding applicator, teacher, penal officer, piano case maker)? Give summary @ -No Was smoking cessation discussed for >3mins.? @ -No Was critical care preformed (if so, how long)? @ -No Were there social determinants of health that impacted care today? How? (Homelessness, low income, unemployed, alcoholism, drug addiction, transp ortation, low edu. Level, literacy, decrease access to med. care, detention, rehab)? @ -No Was there de-escalation of care discussed even if they declined (Discuss DNR or withdrawal of care, Hospice)? DNR status @ -No What co-morbidities impacted this encounter? (DM, HTN, Smoking, COPD, CAD, Cancer, CVA, ARF, Chemo, Hep., AIDS, mental health diagnosis, sleep apnea, morbid obesity)? @ -Migraine Was patient admitted / discharged? Hospital course, mention meds given and route, prescriptions, significant lab abnormalities, going to OR and other pertinent info. @ -Discharge. 33-year-old female presented to the ER for evaluation of migraine headache. History and physical exam completed. Vitals stable. Patient was in acute distress. No acute neurological findings on exam. Laboratory studies unremarkable. Patient received symptomatic treatment in the ER with IV Toradol, Benadryl, Decadron and Zofran without relief. Patient at that point received IV magnesium with relief of headache. Upon reevaluation, patient resting company in exam room no signs of acute distress. Patient reporting improvement of headache and would like to be discharged. Strict return parameters discussed. Patient discharged in stable condition with follow-up to PCP. Patient verbally expressed understanding and agreement with care plan. Case discussed with ED attending, Dr. Ozuna. Undiagnosed new problem with uncertain prognosis? @ -No Drug Therapy requiring intensive monitoring for toxicity (Heparin, Nitro, Insulin, Cardizem)? @ -No Were any procedures done? @ -No Diagnosis/symptom? @ -Migraine headache Acute, or Chronic, or Acute on Chronic? @ -Acute on chronic Uncomplicated (without systemic symptoms) or Complicated (systemic symptoms)? @ -Uncomplicated Side effects of treatment? @ -No Exacerbation, Progression, or Severe Exacerbation? @ -No Poses a threat to life or bodily function? How? (Chest pain, [place], [place], pneumonia, PE, COPD, DKA, ARF, appy, cholecystitis, CVA, Diverticulitis, Homicidal, Suicidal, threat to staff... and all critical care pts) @ -No - Lab Data Result diagrams: 03/29/24 20:49 03/29/24 20:49 Lab Results 03/29/24 03/29/24 Range/Units 20:49 20:49 WBC 6.1 (3.8-10.6) k/uL RBC 4.29 (3.80-5.40) m/uL Hgb 14.2 (11.4-16.0) gm/dL Hct 42.5 (34.0-46.0) % MCV 99.1 (80.0-100.0) fL MCH 33.2 (25.0-35.0) pg MCHC 33.5 (31.0-37.0) g/dL RDW 12.7 (11.5-15.5) % Plt Count 250 (150-450) k/uL MPV 7.1 Neutrophils % 52 % Lymphocytes % 38 % Monocytes % 5 % Eosinophils % 2 % Basophils % 1 % Neutrophils # 3.2 (1.3-7.7) k/uL Lymphocytes # 2.3 (1.0-4.8) k/uL Monocytes # 0.3 (0-1.0) k/uL Eosinophils # 0.1 (0-0.7) k/uL Basophils # 0.0 (0-0.2) k/uL Sodium 139 (137-145) mmol/L Potassium 4.2 (3.5-5.1) mmol/L Chloride 108 H (98-107) mmol/L Carbon Dioxide 25 (22-30) mmol/L Anion Gap 6 mmol/L BUN 12 (7-17) mg/dL Creatinine 0.75 (0.52-1.04) mg/dL Est GFR (CKD-EPI)AfAm >90 (>60 ml/min/1.73 sqM) Est GFR (CKD-EPI)NonAf >90 (>60 ml/min/1.73 sqM) Glucose 101 H (74-99) mg/dL Calcium 9.2 (8.4-10.2) mg/dL Total Bilirubin 0.5 (0.2-1.3) mg/dL AST 20 (14-36) U/L ALT 18 (4-34) U/L Alkaline Phosphatase 60 (38-126) U/L Total Protein 7.3 (6.3-8.2) g/dL Albumin 4.3 (3.5-5.0) g/dL Disposition Clinical Impression: Migraine headache Disposition: HOME SELF-CARE Condition: Stable Instructions (If sedation given, give patient instructions): Migraine Headache (ED) Additional Instructions: Follow-up with PCP. Return to ER for any new or worsening concerns. Is patient prescribed a controlled substance at d/c from ED?: No Referrals: Toni Dixon DO [Primary Care Provider] - 1-2 days Time of Disposition: 22:42
[2024-03-29] MEDS: diphenhydrAMINE 50 MG/ML 1 ML VIAL IVP STA (20:54)
[2024-03-29] MEDS: DEXAMETHASONE SOD PHOSPHATE 4 MG/ML 1 ML VIAL IVP STA (20:54)
[2024-03-29] MEDS: ONDANSETRON 4 MG/2 ML VIAL IVP STA (20:54)
[2024-03-29] MEDS: KETOROLAC 15 MG/ML 1 ML VIAL IVP STA (20:55)
[2024-03-29] MEDS: METOCLOPRAMIDE 5 MG/ML 2 ML VIAL IVP STA (21:01)
[2024-03-29 21:10] LABS: Basophils % (A) 1 %; Eosinophils # (A) 0.1 k/uL (0-0.7); Eosinophils % (A) 2 %; HCT 42.5 % (34.0-46.0); HGB 14.2 gm/dL (11.4-16.0); Lymphocytes # (A) 2.3 k/uL (1.0-4.8); Lymphocytes % (A) 38 %; MCH 33.2 pg (25.0-35.0); MCHC 33.5 g/dL (31.0-37.0); MCV 99.1 fL (80.0-100.0); Mean Platelet Volume 7.1; Monocytes # (A) 0.3 k/uL (0-1.0); Monocytes % (A) 5 %; Neutrophils # (A) 3.2 k/uL (1.3-7.7); Neutrophils % (A) 52 %; Platelet Count 250 k/uL (150-450); RBC 4.29 m/uL (3.80-5.40); RDW 12.7 % (11.5-15.5); WBC 6.1 k/uL (3.8-10.6)
[2024-03-29 21:18] LABS: ALT 18 U/L (4-34); AST 20 U/L (14-36); African American GFR (CKD) >90 (>60 ml/min/1.73 sqM); Albumin 4.3 g/dL (3.5-5.0); Alkaline Phosphatase 60 U/L (38-126); Anion Gap 6 mmol/L; Blood Urea Nitrogen 12 mg/dL (7-17); Calcium 9.2 mg/dL (8.4-10.2); Carbon Dioxide 25 mmol/L (22-30); Chloride 108 mmol/L (98-107); Glucose 101 mg/dL (74-99); Non-African American GFR(CKD) >90 (>60 ml/min/1.73 sqM); Potassium 4.2 mmol/L (3.5-5.1); Sodium 139 mmol/L (137-145); Total Bilirubin 0.5 mg/dL (0.2-1.3); Total Protein 7.3 g/dL (6.3-8.2)
[2024-03-29] MEDS: MAGNESIUM SULFATE-D5W PMX 1 GM in DEXTROSE/WATER 1 100ML.BAG IVPB ONE (21:48)
[2024-03-29 23:03] VITALS: BP 130/81; PULSE 74; RESP 18
== END 2024-03-29 23:08 | disposition home or self-care (01) ==
LOC: EC 20:15
DX: G43.909 Migraine, unspecified, not intractable, without status migrainosus (principal); Z88.8 Allergy status to other drugs, medicaments and biological substances
CPT/HCPCS: 99283; 96365 ×2; 96375 ×4; 36415; 80053; 85025; J1200; J1100; J2405; J3475; J1885